=== PATIENT | male | born 1990 ===

== ENCOUNTER 2023-09-05 18:40 | Emergency (ER) | payer MEDICAID ==
[~2023-09-05] VITALS: Ht 170.2 cm; Wt 81.8 kg
[2023-09-05] MEDS ORDERED: SULF-261 PO (23:08)
[2023-09-05] MEDS ORDERED: ACET-2247 PO (23:08)
[2023-09-05] MEDS ORDERED: CEPH-558 PO (23:08)
[2023-09-05] MEDS: ACETAMINOPHEN 500 MG TABLET PO ONE (23:20)
[2023-09-05] MEDS: CEPHALEXIN MONOHYDRATE 500 MG CAPSULE PO ONE (23:20)
[2023-09-05] MEDS: SULFAMETHOX/TRIMETH DS 800-160 MG/TABLET PO ONE (23:20)
[2023-09-05 23:49] VITALS: BP 127/79; PULSE 89; RESP 18; TEMP 98.3
== END 2023-09-05 23:50 | disposition home or self-care (01) ==
LOC: EMS 18:40
DX: L03.115 Cellulitis of right lower limb (principal); F17.210 Nicotine dependence, cigarettes, uncomplicated; F12.90 Cannabis use, unspecified, uncomplicated
CPT/HCPCS: 99284; Z7502; Z7610